=== PATIENT | female | born 1990 | race Caucasian/White ===

== ENCOUNTER 2022-01-04 09:53 | Emergency (ER) | payer MEDICAID ==
[~2022-01-04] VITALS: Ht 165.1 cm; Wt 70.0 kg
[2022-01-04] MEDS ORDERED: NAPR-681 PO (11:18)
[2022-01-04] MEDS ORDERED: CIPR1DRO2 RIGHT EAR (11:18)
[2022-01-04] MEDS ORDERED: SULF1TAB48 PO (11:18)
[2022-01-04] MEDS ORDERED: CEPH500C2 PO (11:18)
[2022-01-04 11:28] VITALS: BP 138/63
== END 2022-01-04 11:29 | disposition home or self-care (01) ==
LOC: ER 10:05
DX: H60.11 Cellulitis of right external ear (principal); F12.10 Cannabis abuse, uncomplicated
CPT/HCPCS: 99283